=== PATIENT | male | born 1935 | race Caucasian/White ===

== ENCOUNTER 2016-12-16 12:05 | Emergency (ER) | payer MEDICARE, OTHER ==
[2016-12-16 12:09] VITALS: RESP 18
[2016-12-16] MEDS ORDERED: SODIUM CHLORIDE 0.9% 1,000 ML IV STA (12:39)
--- NOTE | 2016-12-16 12:42 | ED ---
General Adult HPI - General Source: patient, RN notes reviewed Mode of arrival: ambulatory Limitations: no limitations <Arnav Olivares - Last Filed: 12/16/16 14:05> <Lion Lester - Last Filed: 12/16/16 14:25> - General Chief complaint: Abdominal Pain Stated complaint: Blood in Urine Time Seen by Provider: 12/16/16 12:36 - History of Present Illness Initial comments: Patient 81-year-old male who presents emergency room today with a chief complaint of hematuria that started last night. States never had similar symptoms in the past. Denies any blood thinners. Does admit that today while he was in denominational he began having some left-sided flank pain. Patient currently rates it a /. He denies any other complaints or symptoms. Patient denies any recent fever, chills, shortness of breath, chest pain, abdominal pain, nausea or vomiting, numbness or tingling, dysuria, constipation or diarrhea, headaches or visual changes, or any other complaints. (Arnav Olivares) - Related Data Home Medications Medication Instructions Recorded Confirmed Benazepril [Lotensin] 5 mg PO DAILY 12/16/16 12/16/16 Multivit-Min/FA/Lycopen/Lutein 1 tab PO DAILY 12/16/16 12/16/16 [Centrum Silver Men Tablet] Pioglitazone [Actos] 15 mg PO DAILY 12/16/16 12/16/16 Pravastatin Sodium [Pravachol] 40 mg PO DAILY 12/16/16 12/16/16 glipiZIDE XL [Glucotrol Xl] 2.5 mg PO DAILY 12/16/16 12/16/16 metFORMIN HCL [Glucophage] 500 mg PO BID 12/16/16 12/16/16 Previous Rx's Medication Instructions Recorded Hydrocodone/Acetaminophen [Sibley 1 each PO Q6HR PRN #20 tab 12/16/16 5-325] Ibuprofen [Motrin] 600 mg PO Q6HR PRN #40 day 12/16/16 Ondansetron Odt [Zofran ODT] 4 mg PO Q8HR PRN #20 tab 12/16/16 Tamsulosin [Flomax] 0.4 mg PO DAILY #10 cap 12/16/16 Allergies Allergy/AdvReac Type Severity Reaction Status Date / Time No Known Allergies Allergy Verified 12/16/16 14:10 Review of Systems ROS Other: All systems not noted in ROS Statement are negative. <Arnav Olivares - Last Filed: 12/16/16 14:05> ROS Other: All systems not noted in ROS Statement are negative. <Lion Lester - Last Filed: 12/16/16 14:25> ROS Statement: Those systems with pertinent positive or pertinent negative responses have been documented in the HPI. Past Medical History Past Medical History: No Reported History History of Any Multi-Drug Resistant Organisms: None Reported Past Surgical History: No Surgical Hx Reported Past Psychological History: No Psychological Hx Reported Smoking Status: Never smoker Past Alcohol Use History: None Reported Past Drug Use History: None Reported <Arnav Olivares - Last Filed: 12/16/16 14:05> General Exam Limitations: no limitations <Arnav Olivares - Last Filed: 12/16/16 14:05> <Lion Lester - Last Filed: 12/16/16 14:25> - General Exam Comments Initial Comments: General: The patient is awake and alert, in no distress, and does not appear acutely ill. Eye: Pupils are equal, round and reactive to light, extra-ocular movements are intact. No nystagmus. There is normal conjunctiva bilaterally. No signs of icterus. Ears, nose, mouth and throat: There are moist mucous membranes and no oral lesions. Neck: The neck is supple, there is no tenderness or JVD. Cardiovascular: There is a regular rate and rhythm. No murmur, rub or gallop is appreciated. Respiratory: Lungs are clear to auscultation, respirations are non-labored, breath sounds are equal. No wheezes, stridor, rales, or rhonchi. Gastrointestinal: Soft, non-distended, non-tender abdomen without masses or organomegaly noted. There is no rebound or guarding present. No CVA tenderness. Bowel sounds are unremarkable. Musculoskeletal: Normal ROM, no tenderness. Strength 5/5. Sensation intact. Pulses equal bilaterally 2+. Neurological: A&O x 3. CN II-XII intact, There are no obvious motor or sensory deficits. Coordination appears grossly intact. Speech is normal. Skin: Skin is warm and dry and no rashes or lesions are noted. Psychiatric: Cooperative, appropriate mood & affect, normal judgment. (Arnav Olivares) Course <Arnav Olivares - Last Filed: 12/16/16 14:05> <Lion Lester - Last Filed: 12/16/16 14:25> Vital Signs 12/16/16 12/16/16 12/16/16 12:07 13:09 14:04 Temperature 98.0 F 97.7 F 97.6 F Pulse Rate 74 63 56 L Respiratory 18 18 18 Rate Blood Pressure 139/93 147/73 155/76 O2 Sat by Pulse 98 97 98 Oximetry - Reevaluation(s) Reevaluation #1: 12/16/16 14:24 I did personally do a [id number] evaluation the patient did discuss the findings with him. Patient currently is pain-free. We did discuss the history and progression of kidney stones. Patient will be placed on appropriate medication. He will follow-up with his doctor and return if needed. (Lion Lester) Medical Decision Making - Lab Data Result diagrams: 12/16/16 12:36 12/16/16 12:36 <Arnav Olivares - Last Filed: 12/16/16 14:05> - Lab Data Result diagrams: 12/16/16 12:36 12/16/16 12:36 <Lion Lester - Last Filed: 12/16/16 14:25> - Medical Decision Making Case discussed in detail with attending physician Dr. Lester. Patient reexamined at this time shows no signs of distress. Patient resting calmly in the stretcher. His CT reviewed and does show 3 mm stone in the left UPJ. Patient' s urinalysis reviewed large amount of blood. No sign of infection. Remaining labs reviewed and are unremarkable. Patient is comfortable being discharged home at this time. Will be given pain medication along with Flomax and nausea medication to go home with. Patient is advised return here to the emergency room symptoms increase or worsen. Advised to follow-up family doctor and urologist over the next 2 days. Patient states her stay and is in agreement. ( Arnav Olivares) - Lab Data Lab Results 12/16/16 12/16/16 12/16/16 Range/Units 12:36 12:36 12:36 WBC 9.2 (3.8-10.6) k/uL RBC 4.52 (4.30-5.90) m/uL Hgb 15.4 (13.0-17.5) gm/dL Hct 44.0 (39.0-53.0) % MCV 97.3 (80.0-100.0) fL MCH 34.1 (25.0-35.0) pg MCHC 35.0 (31.0-37.0) g/dL RDW 12.4 (11.5-15.5) % Plt Count 255 (150-450) k/uL Neutrophils % 76 % Lymphocytes % 15 % Monocytes % 7 % Eosinophils % 1 % Basophils % 0 % Neutrophils # 7.0 (1.3-7.7) k/uL Lymphocytes # 1.3 (1.0-4.8) k/uL Monocytes # 0.6 (0-1.0) k/uL Eosinophils # 0.1 (0-0.7) k/uL Basophils # 0.0 (0-0.2) k/uL PT 10.2 (9.0-12.0) sec INR 1.0 (<1.1) APTT 25.3 (22.0-30.0) sec Sodium 140 (137-145) mmol/L Potassium 5.0 (3.5-5.1) mmol/L Chloride 106 (98-107) mmol/L Carbon Dioxide 24 (22-30) mmol/L Anion Gap 10 mmol/L BUN 20 (9-20) mg/dL Creatinine 1.10 (0.66-1.25) mg/dL Est GFR (MDRD) Af Amer >60 (>60 ml/min/1.73 sqM) Est GFR (MDRD) Non-Af >60 (>60 ml/min/1.73 sqM) Glucose 176 H (74-99) mg/dL Calcium 9.7 (8.4-10.2) mg/dL Total Bilirubin 1.4 H (0.2-1.3) mg/dL AST 19 (17-59) U/L ALT 23 (21-72) U/L Alkaline Phosphatase 72 (38-126) U/L Total Protein 7.2 (6.3-8.2) g/dL Albumin 4.5 (3.5-5.0) g/dL Amylase 60 (30-110) U/L Lipase 110 (23-300) U/L Urine Color Urine Appearance (Clear) Urine RBC (0-5) /hpf Urine WBC (0-5) /hpf Urine Bacteria (None) /hpf Granular Casts (0) /lpf Urine Mucus (None) /hpf 12/16/16 Range/Units 12:36 WBC (3.8-10.6) k/uL RBC (4.30-5.90) m/uL Hgb (13.0-17.5) gm/dL Hct (39.0-53.0) % MCV (80.0-100.0) fL MCH (25.0-35.0) pg MCHC (31.0-37.0) g/dL RDW (11.5-15.5) % Plt Count (150-450) k/uL Neutrophils % % Lymphocytes % % Monocytes % % Eosinophils % % Basophils % % Neutrophils # (1.3-7.7) k/uL Lymphocytes # (1.0-4.8) k/uL Monocytes # (0-1.0) k/uL Eosinophils # (0-0.7) k/uL Basophils # (0-0.2) k/uL PT (9.0-12.0) sec INR (<1.1) APTT (22.0-30.0) sec Sodium (137-145) mmol/L Potassium (3.5-5.1) mmol/L Chloride (98-107) mmol/L Carbon Dioxide (22-30) mmol/L Anion Gap mmol/L BUN (9-20) mg/dL Creatinine (0.66-1.25) mg/dL Est GFR (MDRD) Af Amer (>60 ml/min/1.73 sqM) Est GFR (MDRD) Non-Af (>60 ml/min/1.73 sqM) Glucose (74-99) mg/dL Calcium (8.4-10.2) mg/dL Total Bilirubin (0.2-1.3) mg/dL AST (17-59) U/L ALT (21-72) U/L Alkaline Phosphatase (38-126) U/L Total Protein (6.3-8.2) g/dL Albumin (3.5-5.0) g/dL Amylase (30-110) U/L Lipase (23-300) U/L Urine Color Brown Urine Appearance Bloody (Clear) Urine RBC 162 H (0-5) /hpf Urine WBC <1 (0-5) /hpf Urine Bacteria Rare H (None) /hpf Granular Casts 5 (0) /lpf Urine Mucus Rare H (None) /hpf Disposition Time of Disposition: 14:06 <Arnav Olivares - Last Filed: 12/16/16 14:05> <TrevonLion - Last Filed: 12/16/16 14:25> Clinical Impression: Kidney stone Disposition: HOME SELF-CARE Condition: Good Instructions: Kidney Stones (ED) Additional Instructions: Please use medication as discussed. Please follow-up with urologist / family doctor in the next 2 days of symptoms have not improved. Please return to emergency room if the symptoms increase or worsen or for any other concerns. Prescriptions: Hydrocodone/Acetaminophen [Sibley 5-325] 1 each PO Q6HR PRN #20 tab PRN Reason: Pain Ibuprofen [Motrin] 600 mg PO Q6HR PRN #40 day PRN Reason: Pain Ondansetron Odt [Zofran ODT] 4 mg PO Q8HR PRN #20 tab PRN Reason: Nausea Tamsulosin [Flomax] 0.4 mg PO DAILY #10 cap Referrals: Jeff Hall MD [Primary Care Provider] - 1-2 days Bill Murphy MD [STAFF PHYSICIAN] - 1-2 days
[2016-12-16 12:56] LABS: Basophils % (A) 0 %; CH 33.2; CHCM 34.3; Eosinophils # (A) 0.1 k/uL (0-0.7); Eosinophils % (A) 1 %; HGB 15.4 gm/dL (13.0-17.5); Luc # (Auto) 0.14; Luc % (Auto) 2; Lymphocytes # (A) 1.3 k/uL (1.0-4.8); Lymphocytes % (A) 15 %; MCH 34.1 pg (25.0-35.0); MCV 97.3 fL (80.0-100.0); Mean Platelet Volume 8.3; Monocytes # (A) 0.6 k/uL (0-1.0); Monocytes % (A) 7 %; Neutrophils % (A) 76 %; RBC 4.52 m/uL (4.30-5.90); RDW 12.4 % (11.5-15.5); WBC 9.2 k/uL (3.8-10.6); WBC (Perox) 8.71
[2016-12-16 13:08] LABS: ALT 23 U/L (21-72); AST 19 U/L (17-59); Alkaline Phosphatase 72 U/L (38-126); Amylase 60 U/L (30-110); Anion Gap 10 mmol/L; Blood Urea Nitrogen 20 mg/dL (9-20); Calcium 9.7 mg/dL (8.4-10.2); Carbon Dioxide 24 mmol/L (22-30); Chloride 106 mmol/L (98-107); Glucose 176 mg/dL (74-99); Non-African American GFR(MDRD) >60 (>60 ml/min/1.73 sqM); Sodium 140 mmol/L (137-145); Total Bilirubin 1.4 mg/dL (0.2-1.3); Total Protein 7.2 g/dL (6.3-8.2)
[2016-12-16 13:12] LABS: Partial Thromboplastin Time 25.3 sec (22.0-30.0); Prothrombin Time 10.2 sec (9.0-12.0)
--- NOTE | 2016-12-16 13:12 | CT ---
EXAMINATION TYPE: CT abdomen pelvis wo con DATE OF EXAM: 12/16/2016 COMPARISON: NONE HISTORY: Left flank pain and gross hematuria CT DLP: 632.10 mGycm Automated exposure control for dose reduction was used. TECHNIQUE: Helical acquisition of images was performed from the lung bases through the pelvis. FINDINGS: Lung bases are clear of consolidation. There is no pleural effusion. There is no pericardial effusion . There are numerous calcified gallstones. Liver shows no focal defect. Spleen appears normal. There is no pancreatic mass. There is no adrenal mass. There is a mild left-sided hydronephrosis. There is a 3 mm calculus at the left ureteropelvic junction. Ureters are not dilated. There are numerous diverticula in the sigmoid colon. There is no evidence of diverticulitis. Bladder distends smoothly. There is no pelvic mass. There is no ascites. Appendix appears normal. I see no aki ny destructive process. IMPRESSION: SMALL CALCULUS AT THE LEFT URETEROPELVIC JUNCTION WITH MILD LEFT-SIDED HYDRONEPHROSIS AND OBSTRUCTION . THERE IS SOME STRANDING AROUND BOTH KIDNEYS CONSISTENT WITH PREVIOUS EPISODES OF OBSTRUCTION. CHOLELITHIASIS.
[2016-12-16] MEDS ORDERED: ONDANSETRON 4 MG/2 ML VIAL IVP STA (13:19)
[2016-12-16 13:25] LABS: Bacteria,Urine Rare /hpf; Granular Casts,Urine 5 /lpf (0); Mucus,Urine Rare /hpf; Particle Count 2279; RBC,Urine 162 /hpf (0-5); WBC,Urine <1 /hpf (0-5)
[2016-12-16 13:27] LABS: Appearance,Urine Bloody (Clear)
[2016-12-16 13:28] LABS: UA Billing (MACRO vs. MICRO) MICRO
[2016-12-16] MEDS ORDERED: KETOROLAC 30 MG/ML 1 ML VIAL IVP STA (13:41)
[2016-12-16 14:07] VITALS: BP 155/76; PULSE 56; TEMP 97.6
== END 2016-12-16 14:38 | disposition home or self-care (01) ==
LOC: EC 12:05
DX: N20.0 Calculus of kidney (principal); Z79.84 Long term (current) use of oral hypoglycemic drugs; Z79.899 Other long term (current) drug therapy
CPT/HCPCS: 99284; 96374; 96375; 96361; 36415; 80053; 82150; 83690; 85025; 85610; 85730; 81001; 87086; 87077; 87186; 74176; J2405; J1885